=== PATIENT | male | born 1985 | race Two or more races ===

== ENCOUNTER 2016-12-29 03:37 | Emergency (ER) | payer OTHER ==
[~2016-12-29] VITALS: Ht 165.1 cm; Wt 70.2 kg
[2016-12-29] MEDS ORDERED: ACETAMINOPHEN 500 MG TABLET ONE (04:05)
[2016-12-29] MEDS ORDERED: DEXAMETHASONE 4 MG TABLET ONE (04:12)
[2016-12-29] MEDS ORDERED: DEXAMETHASONE 4 MG TABLET PO ONE (04:30)
[2016-12-29] MEDS ORDERED: ACETAMINOPHEN 500 MG TABLET PO ONE (04:30)
[2016-12-29] MEDS ORDERED: ACETAMINOPHEN 325 MG TABLET PO ONE (04:30)
[2016-12-29 04:43] VITALS: BP 117/65
== END 2016-12-29 04:47 | disposition home or self-care (01) ==
LOC: ED 04:41
DX: J02.9 Acute pharyngitis, unspecified (principal)
CPT/HCPCS: 99283

== ENCOUNTER 2019-05-17 17:07 | Emergency (ER) | payer OTHER ==
[~2019-05-17] VITALS: Ht 160 cm; Wt 74.8 kg
[2019-05-17 17:15] VITALS: BP 128/83
[2019-05-17] MEDS ORDERED: LIDOCAINE-MPF 1%, 5ML INFIL ONE (17:30)
[2019-05-17] MEDS ORDERED: LIDOCAINE-MPF 1%, 5ML ONE (18:27)
[2019-05-17] MEDS ORDERED: NEOSPORIN OINT. PKT 1 PACKET ONE (19:21)
== END 2019-05-17 19:56 | disposition home or self-care (01) ==
LOC: ED 18:07
DX: S91.115A Laceration without foreign body of left lesser toe(s) without damage to nail, initial encounter (principal); X58.XXXA Exposure to other specified factors, initial encounter; Y93.89 Activity, other specified; Y92.009 Unspecified place in unspecified non-institutional (private) residence as the place of occurrence of the external cause; Y99.8 Other external cause status
CPT/HCPCS: 12001; 99283

== ENCOUNTER 2019-05-26 09:35 | Emergency (ER) | payer OTHER ==
[~2019-05-26] VITALS: Ht 167.6 cm; Wt 74.0 kg
[2019-05-26 11:12] VITALS: BP 112/63
== END 2019-05-26 11:14 | disposition home or self-care (01) ==
LOC: ED 09:58
DX: S91.115D Laceration without foreign body of left lesser toe(s) without damage to nail, subsequent encounter (principal); X58.XXXD Exposure to other specified factors, subsequent encounter
CPT/HCPCS: 99281